=== PATIENT | female | born 1945 | race Caucasian/White ===

== ENCOUNTER 2022-08-26 12:45 | Outpatient (REF) | payer MEDICARE, OTHER, SELFPAY ==
--- NOTE | 2022-08-31 13:10 | MHC.AU.AEV ---
Adult Audiological Evaluation Date of Visit: 08/26/22 Reason for Appointment: Patient has been noticing gradually increasing hearing difficulty for a long time. She has particular difficulty understanding speech in noise or in groups, as well as difficulty understanding speech on the television. Hearing Handicap Inventory Does a hearing problem cause you to feel embarrassed when meeting new people?: Yes Does a hearing problem cause you to feel frustrated when talking to members of your family?: Sometimes Do you have difficulty when someone speaks in a whisper?: Yes Do you feel handicapped by a hearing problem?: Yes Does a hearing problem cause you difficulty when visiting friends, relatives, or neighbors?: Yes Does a hearing problem cause you to attend synagogue service services less often than you would like?: No Does a hearing problem cause you to have arguments with family members?: Sometimes Does a hearing problem cause you difficulty when listening to TV or radio?: Yes Do you feel that any difficult with your hearing limits or hampers your personal or social life?: Yes Does a hearing problem cause you difficulty when in a restaurants with relatives or friends?: Yes HHIE SCORE: 32 Based on HHIE score, patient has: Severe perceived hearing handicap Ear History: Ear Deformity: None Reported Recent Ear Drainage: None Reported Recent Ear Pain: None Reported Recent Ear Infections: None Reported Ear Infections in Childhood: None Reported History of Ear Wax Buildup: None Reported Previous Ear Surgery: None Reported Bothersome Tinnitus/Ringing/Noises in Ears: Both Ears Ear used on the phone: Right Ear Blocked/Full Sensation in Ear(s): None Reported History of occupational noise exposure?: No History: No Otoscopy: Right Ear: Unremarkable Left Ear: Unremarkable Tympanometry: Tympanometry performed due to: To assess integrity of the middle ear system Right Ear: Reduced Middle Ear Compliance (Type As) Left Ear: Reduced Middle Ear Compliance (Type As) Hearing Evaluation: Transducer(s) Used: Insert Earphones Method: Conventional Audiometry Stimuli Used: Pure Tones Right Ear: Description of Hearing: Moderate to moderately-severe sensorineural hearing loss. SRT is 45 dBHL. Word discrimination at MCL is 92%. Left Ear: Description of Hearing: Mild to moderate sensorineural hearing loss. SRT is 40 dBHL. Word discrimination at MCL is 96%. Most Comfortable Level (MCL): Right Ear: Right: 80 dBHL, Left: 75 dBHL Recommendations: Audiological re-evaluation in one year. Patient purchased a personal sound amplification product (PSAP) from the television several months ago. She has not worn it, as she does not know how to use it. She wanted to bring it to today's appointment and ask for our help, but she forgot it at home. Discussed that she may be able to call the customer service number for the PSAP she purchased and ask if someone can give her a tutorial on how to use it. We would not be able to give a proper tutorial on how to use it at our clinic, as it is a product we are not familiar with. Discussed the difference between hearing aids and PSAPs. PSAPs are products that amplify sound, but they are not regulated by the FDA and typically have limited sound quality. Hearing aids are regulated by the FDA and have more beneficial features, such as background noise suppression. Given the extent of hearing loss, she would likely be more successful with hearing aids, either regular or OTC. She reports that she is unable to pursue hearing aids at this time. Diagnosis: Primary Diagnosis: H90.3 Bilateral Sensorineural Hearing Loss Signature: Provider: Kristan Mckeon, [facility]
== END 2022-08-26 12:46 | disposition home or self-care (01) ==
LOC: HO.SH 12:45
PROVIDERS: Visit Provider Internal Medicine
DX: Z01.118 Encounter for examination of ears and hearing with other abnormal findings (principal); H90.3 Sensorineural hearing loss, bilateral
CPT/HCPCS: 92557; 92567